=== PATIENT | female | born 1935 | race Caucasian/White ===

== ENCOUNTER 2019-12-17 09:31 | Emergency (ER) | payer MEDICARE, OTHER ==
[2019-12-17] MEDS ORDERED: Sodium Chloride 0.9% 10 ML Syringe FLUSH PRN (09:41)
[2019-12-17] MEDS ORDERED: Sodium Chloride 0.9% 1,000 ML IV ONE (09:42)
--- NOTE | 2019-12-17 10:21 | EDM.PDOC ---
ED HPI GENERAL MEDICAL PROBLEM - General Time Seen by Provider: 12/17/19 09:31 Source of Information: Reports: Patient History Limitations: Reports: No Limitations - History of Present Illness INITIAL COMMENTS - FREE TEXT/NARRATIVE: 911 was summoned for a female patient who had fallen at home. Pt. states that she was walking with her walker in her kitchen of her apartment when she fell, landing on her knees. Pt. is unsure how she fell. She doesn't think she tripped, but she didn't have any weakness or lightheadedness prior to the fall, either. Pt. denies any recent illness. She states that she remembers the whole event. Pt. 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 Pt. denies any chest pain, shortness of breath, cough, chest congestion, fever, chills, or dysuria. She states that she did not strike her head in the fall. Denies any neck pain. Her only complaint is that of bilateral knee pain (she states that she fell forward onto her walker, injuring her knees). Denies any facial trauma. No chest or abdominal trauma. Denies any hip or pelvic pain. Pt. denies any headache. No numbness/tingling in extremities/face. No problems with speech. She has been able to ambulate normally until this fall occurred. Denies any ill contacts. Her only real complaint, aside from the knee pain, is she feels a bit tired. Onset: Today Onset Date: 12/17/19 Location: Reports: Lower Extremity, Left, Lower Extremity, Right, Generalized Quality: Reports: Ache Severity: Mild Improves with: Reports: Rest Worsens with: Reports: Movement Associated Symptoms: Denies: Confusion, Chest Pain, Cough, cough w sputum, Diaphoresis, Fever/Chills, Loss of Appetite, Malaise, Nausea/Vomiting, Seizure, Shortness of Breath, Syncope, Weakness - Related Data Allergies Allergy/AdvReac Type Severity Reaction Status Date / Time metformin HCl Allergy Other Verified 12/17/19 11:11 [From Glucophage] Home Meds: Home Meds Acetaminophen/HYDROcodone [[place] 325-5 MG] 1 - 2 tab PO Q6H PRN 05/23/14 [History] Amlodipine Besylate/Valsartan [Amlodipine-Valsartan 5-160 mg] 1 each PO DAILY 05/23/14 [History] Aspirin [Ecotrin EC] 81 mg PO DAILY 05/23/14 [History] Calcium Carbonate/Vitamin D3 [Calcium 600 + Vit D Tablet] 1 each PO DAILY 05/23/14 [History] Furosemide [Lasix] 40 mg PO DAILY 05/23/14 [History] Gabapentin [Neurontin] 300 mg PO DAILY 05/23/14 [History] Glucagon,Human Recombinant [Glucagon Emergency Kit] 1 mg IJ ASDIRECTED 05/23/14 [History] Insulin Glarg,Human.Rec.Analog [Lantus] 44 unit SQ BID 05/23/14 [History] Insulin Lispro [HumaLOG] 18 unit SQ ACDIN 05/23/14 [History] Insulin Lispro [HumaLOG] 18 unit SQ ACLUN 05/23/14 [History] Insulin Lispro [Humalog] 10 unit SQ ACBRK 05/23/14 [History] Levothyroxine [Synthroid] 100 mcg PO DAILY 05/23/14 [History] Simvastatin [Zocor] 80 mg PO BEDTIME 05/23/14 [History] hydroCHLOROthiazide [Hydrochlorothiazide] 25 mg PO DAILY 05/23/14 [History] Albuterol/Ipratropium [DuoNeb 3.0-0.5 MG/3 ML] 3 ml NEB QID PRN #60 neb 05/28/14 [Rx] Valsartan [Diovan] 160 mg PO DAILY #30 tablet 05/28/14 [Rx] levoFLOXacin [Levaquin] 500 mg PO DAILY@0700 #5 tablet 05/28/14 [Rx] Social & Family History - Living Situation & Occupation Living situation: Reports: Occupation: Retired ED ROS GENERAL - Review of Systems Review Of Systems: See Below Constitutional: Reports: Malaise, Fatigue. Denies: Fever, Chills, Weakness, Diaphoresis, Decreased Appetite, Weight Loss HEENT: Reports: No Symptoms Respiratory: Reports: No Symptoms Cardiovascular: Reports: No Symptoms Endocrine: Reports: No Symptoms GI/Abdominal: Reports: No Symptoms : Reports: No Symptoms Musculoskeletal: Reports: Joint Pain (both knees) Skin: Reports: No Symptoms Neurological: Reports: No Symptoms Psychiatric: Reports: No Symptoms Hematologic/Lymphatic: Reports: No Symptoms Immunologic: Reports: No Symptoms ED EXAM, GENERAL - Physical Exam Exam: See Below Exam Limited By: No Limitations General Appearance: Alert, WD/WN, No Apparent Distress Eye Exam: Bilateral Eye: EOMI, Normal Fundi, Normal Inspection, PERRL Nose: Normal Inspection, No Blood Throat/Mouth: Normal Inspection, Normal Lips, Normal Teeth, Normal Gums, Normal Oropharynx, Normal Voice, No Airway Compromise Head: Atraumatic, Normocephalic Neck: Normal Inspection, Supple, Non-Tender, Full Range of Motion Respiratory/Chest: No Respiratory Distress, Lungs Clear, Normal Breath Sounds, No Accessory Muscle Use, Chest Non-Tender Cardiovascular: Normal Peripheral Pulses, Regular Rate, Rhythm, No Edema, No JVD, No Murmur Peripheral Pulses: 4+: Radial (R) GI/Abdominal: Soft, Non-Tender, No Organomegaly, No Distention, No Mass, Pelvis Stable (Female) Exam: Deferred Rectal (Female) Exam: Deferred Back Exam: Normal Inspection, Full Range of Motion Extremities: Normal Inspection, Normal Range of Motion, Non-Tender, No Pedal Edema, Normal Capillary Refill Neurological: Alert, Oriented, CN II-XII Intact, Normal Cognition, Normal Gait, Normal Reflexes, No Motor/Sensory Deficits Psychiatric: Normal Affect, Normal Mood Skin Exam: Warm, Dry, Intact, Normal Color, No Rash Lymphatic: No Adenopathy EKG INTERPRETATION Rhythm: NSR Mica: Normal P-Wave: Present QRS: Normal ST-T: Normal QT: Normal Course - Orders/Labs/Meds Orders: Active Orders 24 hr Category Date Time Status CULTURE URINE [RM] Stat Lab 12/17/19 11:37 Received Sodium Chloride 0.9% [Saline Flush] Med 12/17/19 09:41 Active 10 ml FLUSH ASDIRECTED PRN Peripheral IV Insertion Adult [OM.PC] Routine Oth 12/17/19 09:42 Ordered Medication Orders Sodium Chloride (Saline Flush) 10 ml FLUSH ASDIRECTED PRN PRN Reason: Keep Vein Open Labs: Laboratory Tests 12/17/19 12/17/19 12/17/19 Range/Units 09:57 09:57 09:57 WBC 9.1 (4.0-10.0) x10^3/uL RBC 3.78 L (4.00-5.50) x10^6/uL Hgb 11.7 L (12.0-16.0) g/dL Hct 35.4 (33.0-47.0) % MCV 93.7 H (78.0-93.0) fL MCH 31.0 (26.0-32.0) pg MCHC 33.1 (32.0-36.0) g/dL RDW Coeff of Stevie 12.8 (10.0-15.0) % Plt Count 272 (130-400) x10^3/uL Add Manual Diff Yes Neutrophils % (Manual) 55 (50-80) % Band Neutrophils % 2 (0-6) % Lymphocytes % (Manual) 34 (25-50) % Monocytes % (Manual) 7 (2-11) % Eosinophils % (Manual) 2 (0-4) % Platelet Estimate Adequate PT 10.2 (9.5-12.3) SEC INR 0.9 L (2.0-3.5) Sodium 140 (136-145) mmol/L Potassium 4.1 (3.5-5.1) mmol/L Chloride 102 (98-107) mmol/L Carbon Dioxide 28 (21-32) mmol/L Anion Gap 14.1 (10-20) mmol/L BUN 46 H (7-18) mg/dL Creatinine 1.5 H (0.55-1.02) mg/dL Est Cr Clr Drug Dosing TNP Estimated GFR (MDRD) 33 Glucose 153 H (74-106) mg/dL Calcium 8.9 (8.5-10.1) mg/dL Corrected Calcium 9.86 (8.5-10.1) mg/dL Magnesium 2.1 (1.8-2.4) mg/dL Total Bilirubin 0.4 (0.2-1.0) mg/dL AST 20 (15-37) U/L ALT 20 (14-59) U/L Alkaline Phosphatase 134 H (46-116) U/L Troponin I < 0.017 (<=0.056) ng/mL Total Protein 7.2 (6.4-8.2) g/dL Albumin 2.8 L (3.4-5.0) g/dL Globulin 4.4 Albumin/Globulin Ratio 0.64 TSH, Ultra Sensitive 16.766 H (0.358-3.74) uIU/mL Urine Color (YELLOW) Urine Appearance (CLEAR) Urine pH (5.0-8.0) Ur Specific [place] Urine Protein (NEGATIVE) mg/dL Urine Glucose (UA) (NEGATIVE) mg/dL Urine Ketones (NEGATIVE) mg/dL Urine Occult Blood (NEGATIVE) Urine Nitrite (NEGATIVE) Urine Bilirubin (NEGATIVE) Urine Urobilinogen (0.2) EU/dL Ur Leukocyte Esterase (NEGATIVE) Urine RBC (NOT SEEN) /HPF Urine WBC (NOT SEEN) /HPF Ur Squamous Epith Cells (NEGATIVE) /HPF Amorphous Sediment Urine Bacteria (NEGATIVE) /HPF Urine Mucus (NEGATIVE) /LPF 12/17/19 Range/Units 11:37 WBC (4.0-10.0) x10^3/uL RBC (4.00-5.50) x10^6/uL Hgb (12.0-16.0) g/dL Hct (33.0-47.0) % MCV (78.0-93.0) fL MCH (26.0-32.0) pg MCHC (32.0-36.0) g/dL RDW Coeff of Stevie (10.0-15.0) % Plt Count (130-400) x10^3/uL Add Manual Diff Neutrophils % (Manual) (50-80) % Band Neutrophils % (0-6) % Lymphocytes % (Manual) (25-50) % Monocytes % (Manual) (2-11) % Eosinophils % (Manual) (0-4) % Platelet Estimate PT (9.5-12.3) SEC INR (2.0-3.5) Sodium (136-145) mmol/L Potassium (3.5-5.1) mmol/L Chloride (98-107) mmol/L Carbon Dioxide (21-32) mmol/L Anion Gap (10-20) mmol/L BUN (7-18) mg/dL Creatinine (0.55-1.02) mg/dL Est Cr Clr Drug Dosing Estimated GFR (MDRD) Glucose (74-106) mg/dL Calcium (8.5-10.1) mg/dL Corrected Calcium (8.5-10.1) mg/dL Magnesium (1.8-2.4) mg/dL Total Bilirubin (0.2-1.0) mg/dL AST (15-37) U/L ALT (14-59) U/L Alkaline Phosphatase (46-116) U/L Troponin I (<=0.056) ng/mL Total Protein (6.4-8.2) g/dL Albumin (3.4-5.0) g/dL Globulin Albumin/Globulin Ratio TSH, Ultra Sensitive (0.358-3.74) uIU/mL Urine Color Yellow (YELLOW) Urine Appearance Turbid H (CLEAR) Urine pH 5.5 (5.0-8.0) Ur Specific [place] 1.020 Urine Protein 100 H (NEGATIVE) mg/dL Urine Glucose (UA) Negative (NEGATIVE) mg/dL Urine Ketones Negative (NEGATIVE) mg/dL Urine Occult Blood Trace-intact H (NEGATIVE) Urine Nitrite Negative (NEGATIVE) Urine Bilirubin Negative (NEGATIVE) Urine Urobilinogen 0.2 (0.2) EU/dL Ur Leukocyte Esterase Moderate H (NEGATIVE) Urine RBC 5-10 H (NOT SEEN) /HPF Urine WBC >100 H (NOT SEEN) /HPF Ur Squamous Epith Cells Many H (NEGATIVE) /HPF Amorphous Sediment Moderate Urine Bacteria Many H (NEGATIVE) /HPF Urine Mucus Moderate H (NEGATIVE) /LPF Meds: Medications Generic Name Dose Route Start Last Admin Trade Name Freq PRN Reason Stop Dose Admin Sodium Chloride 10 ml 12/17/19 09:41 Saline Flush FLUSH ASDIRECTED PRN Keep Vein Open Discontinued Medications Generic Name Dose Route Start Last Admin Trade Name Freq PRN Reason Stop Dose Admin Ceftriaxone Sodium 1 gm 12/17/19 12:28 Rocephin IVPUSH 12/17/19 12:29 STAT ONE Sodium Chloride 1,000 mls @ 1,000 mls/hr 12/17/19 09:42 12/17/19 10:01 Normal Saline IV 12/17/19 10:41 1,000 mls/hr .BOLUS ONE Administration Departure - Departure Time of Disposition: 12:41 (3) Disposition: Home, Self-Care 01 Clinical Impression: UTI (urinary tract infection), Knee sprain - Discharge Information Instructions: Knee Sprain, Adult, [id number], Urinary Tract Infection, Adult, Sulfamethoxazole; Trimethoprim, SMX-TMP tablets Referrals: Lizzy Andrade MD [Primary Care Provider] - Forms: ED Department Discharge Additional Instructions: Bactrim DS 1 twice daily for 7 days Drink plenty of fluids. Tylenol as needed for knee pain. Recheck in clinic in 10-14 days, sooner if not gradually improving. They should check your thyroid function, as one of your labs was off in ER. The rest of your labs were all within normal limits. - Problem List Review Problem List Initiated/Reviewed/Updated: Yes - My Orders Last 24 Hours: My Active Orders 12/17/19 09:41 Sodium Chloride 0.9% [Saline Flush] 10 ml FLUSH ASDIRECTED PRN 12/17/19 09:42 Peripheral IV Insertion Adult [OM.PC] Routine 12/17/19 11:37 CULTURE URINE [RM] Stat - Assessment/Plan Last 24 Hours: My Active Orders 12/17/19 09:41 Sodium Chloride 0.9% [Saline Flush] 10 ml FLUSH ASDIRECTED PRN 12/17/19 09:42 Peripheral IV Insertion Adult [OM.PC] Routine 12/17/19 11:37 CULTURE URINE [RM] Stat Plan: Bactrim DS 1 twice daily for 7 days Drink plenty of fluids. Tylenol as needed for knee pain. Recheck in clinic in 10-14 days, sooner if not gradually improving. They should check your thyroid function, as one of your labs was off in ER. The rest of your labs were all within normal limits.
[2019-12-17 10:38] LABS: CHLORIDE,CL 102 mmol/L (98-107); SODIUM,NA 140 mmol/L (136-145)
[2019-12-17 10:39] LABS: ANION GAP 14.1 mmol/L (10-20)
--- NOTE | 2019-12-17 11:13 | CR ---
[id number] RAD/RAD Knee Bilateral 3V EXAM: RAD Knee Bilateral 3V INDICATION: KNEE PAIN POST FALL. COMPARISON: None. FINDINGS: Moderate to advanced tricompartmental osteoarthritis bilaterally most significant in the medial compartments. Bilateral chondrocalcinosis. Osteopenia. No joint effusion, acute fracture, dislocation or other osseous abnormality is seen. IMPRESSION: 1. Moderate to advanced tricompartmental osteoarthritis. Bhavesh Grossman MD 12/17/19 1111 Thank you for allowing us to participate in the care of your patient.
[2019-12-17] MEDS ORDERED: cefTRIAXone 1 GM Vial IVPUSH ONE (12:28)
[2019-12-17 15:28] VITALS: BP 94/62; PULSE 62
== END 2019-12-17 12:56 | disposition home or self-care (01) ==
LOC: VM.ED 09:31
DX: S83.92XA Sprain of unspecified site of left knee, initial encounter (principal); S83.91XA Sprain of unspecified site of right knee, initial encounter; N39.0 Urinary tract infection, site not specified; Z88.8 Allergy status to other drugs, medicaments and biological substances; Z79.82 Long term (current) use of aspirin; Z79.899 Other long term (current) drug therapy; Z79.4 Long term (current) use of insulin; Y92.009 Unspecified place in unspecified non-institutional (private) residence as the place of occurrence of the external cause; W18.30XA Fall on same level, unspecified, initial encounter; Y92.030 Kitchen in apartment as the place of occurrence of the external cause
CPT/HCPCS: 36415; 73562-50; 80053; 81001; 83735; 84443; 84484; 85025; 85610; 87086; 87088; 87186; 93010; 99284; J0696; J7030

== ENCOUNTER 2020-01-04 09:45 | Emergency (ER) | payer MEDICARE, OTHER ==
--- NOTE | 2020-01-04 10:14 | EDM.PDOC ---
ED HPI GENERAL MEDICAL PROBLEM - General Stated Complaint: FELL Time Seen by Provider: 01/04/20 10:15 Source of Information: Reports: Patient History Limitations: Reports: No Limitations - History of Present Illness INITIAL COMMENTS - FREE TEXT/NARRATIVE: Patient comes emergency department today from home by ambulance with concerns of dizziness fall and left knee pain. This patient was just getting out of the shower when she was ambulating across the bathroom when she felt lightheaded and she fell to the ground landing on her left knee. She did not hit her head. She has no head neck or back pain. She has no loss of consciousness. She had no chest pain shortness of breath or difficulty breathing. No cough or congestion. No weakness fatigue or malaise. No fever no chills. No palpitations. She did not pass out completely. She did not hit her head. She has felt well over the past couple of days. She has had no abdominal pain nausea or vomiting. She does have some struggles with memory and states that her blood sugars have been relatively normal in the mid 100s over the past couple of days. She has been taking her medications as prescribed she believes. She does complain of left knee pain. No paresthesias the left lower extremity. She does have some chronic knee pain to bilateral knees. They are considering replacing her left knee. NO COVID exposure NO COVID symptoms. Left Knee Pain Score (Numeric/FACES): 0 - Related Data Allergies Allergy/AdvReac Type Severity Reaction Status Date / Time metformin HCl Allergy Other Verified 01/04/20 11:38 [From Glucophage] Home Meds: Home Meds Amlodipine Besylate/Valsartan [Amlodipine-Valsartan 5-160 mg] 5 mg PO DAILY 05/23/14 [History] Aspirin [Ecotrin EC] 81 mg PO DAILY 05/23/14 [History] Calcium Carbonate/Vitamin D3 [Calcium 600 + Vit D Tablet] 1 each PO DAILY 05/23/14 [History] Furosemide [Lasix] 60 mg PO DAILY 05/23/14 [History] Glucagon,Human Recombinant [Glucagon Emergency Kit] 1 mg IJ ASDIRECTED 05/23/14 [History] Insulin Lispro [HumaLOG] 18 unit SQ ACDIN 05/23/14 [History] Insulin Lispro [HumaLOG] 18 unit SQ ACLUN 05/23/14 [History] Insulin Lispro [Humalog] 10 unit SQ ACBRK 05/23/14 [History] Levothyroxine [Synthroid] 150 mcg PO DAILY 05/23/14 [History] Simvastatin [Zocor] 40 mg PO BEDTIME 05/23/14 [History] Cyanocobalamin (Vitamin B-12) [Vitamin B-12] 1,000 mcg PO DAILY 01/04/20 [History] Donepezil HCl [Aricept] 5 mg PO BEDTIME 01/04/20 [History] Fish Oil/DHA/EPA [Fish Oil 1,200 MG] 1 each PO BEDTIME 01/04/20 [History] Glucosamine/D3/Boswellia Karis [Osteo Bi-Flex Caplet] 1 each PO DAILY 01/04/20 [History] Insulin Degludec [Tresiba] 45 unit SQ DAILY 01/04/20 [History] Losartan [Cozaar] 100 mg PO DAILY 01/04/20 [History] Nitroglycerin 0.4 mg SL Q5M 01/04/20 [History] Non-Formulary Medication [NF Drug] 0.5 mg SUBCNJ WEEKLY 01/04/20 [History] polyethylene glycoL 3350 [MiraLAX] 17 gm PO DAILY 01/04/20 [History] Social & Family History - Living Situation & Occupation Living situation: Reports: Occupation: Retired ED ROS GENERAL - Review of Systems Review Of Systems: Comprehensive ROS is negative, except as noted in HPI. ED EXAM, DIZZINESS - Physical Exam Exam: See Below Exam Limited By: No Limitations General Appearance: Alert, WD/WN, No Apparent Distress, Obese Eye Exam: Bilateral Eye: EOMI, PERRL Ears: Normal External Exam, Normal Canal Nose: Normal Inspection, Normal Mucosa Throat/Mouth: Normal Inspection, Normal Lips, Normal Teeth, Normal Oropharynx, Normal Voice, No Airway Compromise Head Exam: Atraumatic, Normocephalic Neck: Normal Inspection, Supple, Non-Tender Respiratory/Chest: No Respiratory Distress, Lungs Clear, Normal Breath Sounds, No Accessory Muscle Use, Chest Non-Tender Cardiovascular: Normal Peripheral Pulses, Regular Rate, Rhythm GI/Abdominal: Normal Bowel Sounds, Soft, Non-Tender, Pelvis Stable (Female) Exam: Deferred Rectal (Female) Exam: Deferred Neurological: Alert, Normal Mood/Affect, Normal Dorsiflexion, CN II-XII Intact, Normal Plantar Flexion, Normal Gait, Normal Reflexes, No Motor/Sensory Deficits, Oriented x 3 Back Exam: Normal Inspection, Full Range of Motion. No: CVA Tenderness (L), CVA Tenderness (R), Paraspinal Tenderness, Vertebral Tenderness Extremities: Normal Range of Motion, Non-Tender, Normal Capillary Refill. No: Normal Inspection (Examination of the left lower extremity. There is no swelling or overt tenderness to the left knee. There is no bony deformity. She does have some crepitus on flexion and extension. She has some mild tenderness in varus and valgus stress. Negative Lockman's and anterior drawer sign. The rest the left lower extremity is unremarkable and atraumatic. The right lower extremity is unremarkable and atraumatic as well.) Psychiatric: Normal Affect, Normal Mood Skin Exam: Warm, Dry, Intact, Normal Color, No Rash EKG INTERPRETATION EKG Date: 01/04/20 Time: 09:50 Rhythm: NSR Rate (Beats/Min): 64 [place]: LAD-Left [place] Deviation P-Wave: Present QRS: Normal ST-T: Normal QT: Normal Course - Vital Signs Last Recorded V/S: Last Vital Signs Temp 97.8 F 01/04/20 12:37 Pulse 67 01/04/20 12:37 Resp 16 01/04/20 12:37 BP 142/65 H 01/04/20 12:37 Pulse Ox 96 01/04/20 12:37 - Orders/Labs/Meds Orders: Active Orders 24 hr Category Date Time Status CULTURE URINE [RM] Stat Lab 01/04/20 11:14 Received Labs: Laboratory Tests 01/04/20 01/04/20 01/04/20 Range/Units 10:09 10:09 11:14 WBC 8.3 (4.0-10.0) x10^3/uL RBC 3.74 L (4.00-5.50) x10^6/uL Hgb 11.7 L (12.0-16.0) g/dL Hct 35.2 (33.0-47.0) % MCV 94.1 H (78.0-93.0) fL MCH 31.3 (26.0-32.0) pg MCHC 33.2 (32.0-36.0) g/dL RDW Coeff of Stevie 12.4 (10.0-15.0) % Plt Count 259 (130-400) x10^3/uL Neut % (Auto) 59.9 (50.0-80.0) % Lymph % (Auto) 29.4 (25.0-50.0) % [place] % (Auto) 8.0 (2.0-11.0) % Eos % (Auto) 2.2 (0.0-4.0) % Baso % (Auto) 0.5 (0.2-1.2) % Sodium 135 L (136-145) mmol/L Potassium 4.8 (3.5-5.1) mmol/L Chloride 101 (98-107) mmol/L Carbon Dioxide 26 (21-32) mmol/L Anion Gap 12.8 (10-20) mmol/L BUN 46 H (7-18) mg/dL Creatinine 1.5 H (0.55-1.02) mg/dL Est Cr Clr Drug Dosing 23.92 mL/min Estimated GFR (MDRD) 33 Glucose 457 H* (74-106) mg/dL Calcium 9.1 (8.5-10.1) mg/dL Corrected Calcium 10.06 (8.5-10.1) mg/dL Total Bilirubin 0.4 (0.2-1.0) mg/dL AST 15 (15-37) U/L ALT 20 (14-59) U/L Alkaline Phosphatase 152 H (46-116) U/L Troponin I < 0.017 (<=0.056) ng/mL Total Protein 6.9 (6.4-8.2) g/dL Albumin 2.8 L (3.4-5.0) g/dL Globulin 4.1 Albumin/Globulin Ratio 0.68 Urine Color Yellow (YELLOW) Urine Appearance Clear (CLEAR) Urine pH 6.5 (5.0-8.0) Ur Specific [place] 1.020 Urine Protein 100 H (NEGATIVE) mg/dL Urine Glucose (UA) 500 H (NEGATIVE) mg/dL Urine Ketones Negative (NEGATIVE) mg/dL Urine Occult Blood Small H (NEGATIVE) Urine Nitrite Negative (NEGATIVE) Urine Bilirubin Negative (NEGATIVE) Urine Urobilinogen 0.2 (0.2) EU/dL Ur Leukocyte Esterase Small H (NEGATIVE) Urine RBC 0-5 (NOT SEEN) /HPF Urine WBC 5-10 H (NOT SEEN) /HPF Ur Squamous Epith Cells Many H (NEGATIVE) /HPF Amorphous Sediment Few Urine Bacteria Moderate H (NEGATIVE) /HPF Urine Mucus Few H (NEGATIVE) /LPF Urine Yeast (Budding) Few Meds: Medications Discontinued Medications Generic Name Dose Route Start Last Admin Trade Name Lois PRN Reason Stop Dose Admin Insulin Human Regular 8 unit 01/04/20 10:54 01/04/20 11:17 Humulin R SUBCUT 01/04/20 10:55 8 units NOW STA Administration Morphine Sulfate 2 mg 01/04/20 10:37 01/04/20 11:16 Morphine IVPUSH 01/04/20 10:38 2 mg ONETIME ONE Administration Ondansetron HCl 4 mg 01/04/20 10:37 01/04/20 11:16 Zofran IV 01/04/20 10:38 4 mg ONETIME ONE Administration - Re-Assessments/Exams Free Text/Narrative Re-Assessment/Exam: 01/04/20 The patient was given morphine and ondansetron. with much improvement of pain and comfort. Xray left knee no fracture of dislocation. CT head per radiology no plain CT evidence of acute intracranial process. The patient was able to ambulate with a walker quite steady and without any complaints. No dizziness. Her blood sugar is quite high 450s without any signs of DKA. With her cognitive or memory issues I wonder if she did not miss a dose of insulin at home. She was given 8units of regular INsulin SUbcut. She had lunch and her blood sugar maintained at 450. We will discharge home and have her check her blood sugars more frequently over the next couple of days. She only checks them once or twice a day. I would like her to follow-up with her primary care provider on Monday by phone with the follow-ups of her blood sugar. She should also consider discussing placement for assisted living or other assistive is at home as she has had increased falls and is struggling to continue living at home with her . She is comfortable with this plan and her granddaughter is here and we discussed this with her as well and they are comfortable with this plan and her questions are answered. Departure - Departure Time of Disposition: 12:21 Disposition: Home, Self-Care 01 Clinical Impression: Hyperglycemia, Lightheadedness Diabetes mellitus Qualifiers: Diabetes mellitus type: type 2 Diabetes mellitus senior living insulin use: with senior living use Diabetes mellitus complication status: without complication Qualified Code(s): E11.9 - Type 2 diabetes mellitus without complications Knee pain Qualifiers: Chronicity: unspecified Laterality: left Qualified Code(s): M25.562 - Pain in left knee - Discharge Information Instructions: How to Use Cold Therapy, Vath-up-Hfan, Hyperglycemia, Yacz-lj-Oleu, Dizziness, Kstr-ne-Omma Referrals: Lizzy Andrade MD [Primary Care Provider] - Forms: ED Department Discharge Additional Instructions: Check your blood sugars 4 times a day and record them. Adjust your blood sugars accordingly to your blood sugars. Make position changes slowly. Tylenol as needed for pain. Keep appointments with ortho as previous. Return to the ED if new or worsening symptoms. Follow up on phone with your PCP on monday with blood sugar numbers. Sepsis Event Note (ED) - Focused Exam Vital Signs: Vital Signs Temp Pulse Resp BP Pulse Ox 01/04/20 12:37 97.8 F 67 16 142/65 H 96 01/04/20 11:54 97.8 F 68 18 152/56 H 96 01/04/20 11:40 54 L 166/65 H 01/04/20 10:26 58 L 18 160/65 H 96 01/04/20 09:50 97.9 F 57 L 20 175/101 H 96 - My Orders Last 24 Hours: My Active Orders 01/04/20 11:14 CULTURE URINE [RM] Stat - Assessment/Plan Last 24 Hours: My Active Orders 01/04/20 11:14 CULTURE URINE [RM] Stat
[2020-01-04 10:41] LABS: CHLORIDE,CL 101 mmol/L (98-107); SODIUM,NA 135 mmol/L (136-145)
[2020-01-04 10:48] LABS: ANION GAP 12.8 mmol/L (10-20)
[2020-01-04] MEDS: Ondansetron 4 MG/2 ML SDV IV ONE (11:16)
[2020-01-04] MEDS: Morphine 2 MG/ML SYRINGE IVPUSH ONE (11:16)
[2020-01-04] MEDS: Insulin Regular, Human 100 Units/ML 3 ML Vial SUBCUT STA (11:17)
--- NOTE | 2020-01-04 11:44 | CT ---
[id number] CT/CT Head WO IV EXAM: CT Head WO IV CLINICAL DATA: DIZZINESS COMPARISON: CORRELATION IS MADE WITH SEPTEMBER 05, 2019 FINDINGS: There is no mass or mass effect. There is no hemorrhage or hydrocephalus. There are no extra-axial fluid collections. There are no sites of abnormal attenuation. IMPRESSION: NO PLAIN CT EVIDENCE OF ACUTE INTRACRANIAL PROCESS. Ozzy Quinonez MD 01/04/20 [id number] Thank you for allowing us to participate in the care of your patient.
--- NOTE | 2020-01-04 11:49 | CR ---
[id number] RAD/RAD Knee Left 1-2V EXAM: RAD Knee Left 1-2V CLINICAL DATA: TRAUMA COMPARISON: NO PREVIOUS SIMILAR EXAM IS AVAILABLE FINDINGS: No fracture or dislocation is seen There are significant degenerative changes. IMPRESSION: NO FRACTURE OR DISLOCATION Ozzy Quinonez MD 01/04/20 [id number] Thank you for allowing us to participate in the care of your patient.
[2020-01-04 13:32] VITALS: BP 142/65; PULSE 67
== END 2020-01-04 13:03 | disposition home or self-care (01) ==
LOC: VM.ED 09:45
DX: E11.65 Type 2 diabetes mellitus with hyperglycemia (principal); M25.562 Pain in left knee; Z88.8 Allergy status to other drugs, medicaments and biological substances; Z79.82 Long term (current) use of aspirin; Z79.4 Long term (current) use of insulin; Z79.899 Other long term (current) drug therapy; W19.XXXA Unspecified fall, initial encounter
CPT/HCPCS: 36415; 70450; 73560-LT; 80053; 81001; 82962; 84484; 85025; 87086; 87088; 93005; 93010; 96374; 96375; 99284; 99285-25; J1815-GY; J2270; J2405

== ENCOUNTER 2020-01-06 09:19 | Emergency (ER) | payer MEDICARE, OTHER ==
[2020-01-06] MEDS: Insulin Regular, Human 100 Units/ML 3 ML Vial SUBCUT SCH (10:13)
--- NOTE | 2020-01-06 10:31 | EDM.PDOC ---
ED HPI GENERAL MEDICAL PROBLEM - General Chief Complaint: General Stated Complaint: Weakness Time Seen by Provider: 01/06/20 09:37 Source of Information: Reports: Patient, RN, RN Notes Reviewed History Limitations: Reports: Physical Impairment, Other (Forgetful) - History of Present Illness INITIAL COMMENTS - FREE TEXT/NARRATIVE: Patient presents to ER with her with complaint of falls at home. Patient's not present in the room when visiting with the patient. Patient states she has been more weak and has been falling at home. When asked if she fell today, patient states she is unsure if she fell today or yesterday. She states she has become forgetful. Patient states she is diabetic, and states she does not always remember to take her meds the correct way. Patient states she needs both knees replaced, and states she feels her legs get weak when she stands and she falls. Patient denies any dizziness prior to falling. Patient states she does not know why we do not admit her to the hospital when she comes into the ER. Patient was seen in the ER on Monday, labs drawn, head CT completed. Patient was discharged to home. Patient denies any pain or problems at this time. Patient presents to the ER in a wheelchair, underwear, sweatshirt, bathrobe. Onset: Gradual - Related Data Allergies Allergy/AdvReac Type Severity Reaction Status Date / Time metformin HCl Allergy Other Verified 01/06/20 09:33 [From Glucophage] Home Meds: Home Meds Amlodipine Besylate/Valsartan [Amlodipine-Valsartan 5-160 mg] 5 mg PO DAILY 05/23/14 [History] Aspirin [Ecotrin EC] 81 mg PO DAILY 05/23/14 [History] Calcium Carbonate/Vitamin D3 [Calcium 600 + Vit D Tablet] 1 each PO DAILY 05/23/14 [History] Furosemide [Lasix] 60 mg PO DAILY 05/23/14 [History] Glucagon,Human Recombinant [Glucagon Emergency Kit] 1 mg IJ ASDIRECTED 05/23/14 [History] Insulin Lispro [HumaLOG] 18 unit SQ ACDIN 05/23/14 [History] Insulin Lispro [HumaLOG] 18 unit SQ ACLUN 05/23/14 [History] Insulin Lispro [Humalog] 10 unit SQ ACBRK 05/23/14 [History] Levothyroxine [Synthroid] 150 mcg PO DAILY 05/23/14 [History] Simvastatin [Zocor] 40 mg PO BEDTIME 05/23/14 [History] Cyanocobalamin (Vitamin B-12) [Vitamin B-12] 1,000 mcg PO DAILY 01/04/20 [History] Donepezil HCl [Aricept] 5 mg PO BEDTIME 01/04/20 [History] Fish Oil/DHA/EPA [Fish Oil 1,200 MG] 1 each PO BEDTIME 01/04/20 [History] Glucosamine/D3/Boswellia Karis [Osteo Bi-Flex Caplet] 1 each PO DAILY 01/04/20 [History] Insulin Degludec [Tresiba] 45 unit SQ DAILY 01/04/20 [History] Losartan [Cozaar] 100 mg PO DAILY 01/04/20 [History] Nitroglycerin 0.4 mg SL Q5M 01/04/20 [History] Non-Formulary Medication [NF Drug] 0.5 mg SUBCNJ WEEKLY 01/04/20 [History] polyethylene glycoL 3350 [MiraLAX] 17 gm PO DAILY 01/04/20 [History] Past Medical History HEENT History: Reports: Hard of Hearing Cardiovascular History: Reports: CAD, Heart Failure, Hypertension, Other (See Below) Other Cardiovascular History: bilateral carotid artery stenosis, symptomatic bradycardia Respiratory History: Reports: Sleep Apnea, Other (See Below) Other Respiratory History: chronic allergic rhinitis Genitourinary History: Reports: Other (See Below) Other Genitourinary History: chronic kidney disease stage III Neurological History: Reports: Neuropathy, Diabetic Other Neuro History: cognitive dysfunction Endocrine/Metabolic History: Reports: Diabetes, Type II, Hypothyroidism, Ob esity/BMI 30+, Other (See Below) Other Endocrine/Metabolic History: vitamin B 12 deficiency Dermatologic History: Reports: Other (See Below) Other Dermatologic History: rosacea, onychomycosis Social & Family History - Family History Family Medical History: Noncontributory - Caffeine Use Caffeine Use: Reports: None - Living Situation & Occupation Living situation: Reports: Occupation: Retired ED ROS GENERAL - Review of Systems Review Of Systems: Comprehensive ROS is negative, except as noted in HPI. ED EXAM, GENERAL - Physical Exam Exam: See Below Exam Limited By: Other (Weak, unsteady, forgetful) General Appearance: Alert, WD/WN, No Apparent Distress Eye Exam: Bilateral Eye: EOMI, Normal Inspection Ears: Normal External Exam, Hearing Grossly Normal Nose: Normal Inspection Throat/Mouth: Normal Inspection, Normal Voice, No Airway Compromise Head: Atraumatic, Normocephalic Neck: Normal Inspection, Supple, Non-Tender Respiratory/Chest: No Respiratory Distress, Lungs Clear, Normal Breath Sounds, No Accessory Muscle Use, Chest Non-Tender Cardiovascular: Normal Peripheral Pulses, Regular Rate, Rhythm, No Gallop, No JVD, No Murmur, No Rub Peripheral Pulses: 2+: Radial (L), Radial (R) GI/Abdominal: Normal Bowel Sounds, Soft, Non-Tender (Female) Exam: Deferred Rectal (Female) Exam: Deferred Back Exam: Normal Inspection, Decreased Range of Motion Extremities: Pedal Edema (+1 pedal/lower extremity edema), Leg Pain (bilateral knee pain), Limited Range of Motion (weakness) Neurological: Alert, Oriented, Memory Loss Recent Events, Abnormal Gait Psychiatric: Normal Affect, Normal Mood Skin Exam: Warm, Dry, Intact, Normal Color, No Rash Lymphatic: No Adenopathy Course - Vital Signs Last Recorded V/S: Last Vital Signs Temp 97.1 F 01/06/20 09:39 Pulse 63 01/06/20 09:39 Resp 14 01/06/20 09:39 BP 204/70 H 01/06/20 09:39 Pulse Ox 97 01/06/20 09:39 - Orders/Labs/Meds Orders: Active Orders 24 hr Category Date Time Status Blood Glucose Check, Bedside [RC] ONETIME Care 01/06/20 09:48 Active Insulin Regular, Human [HumuLIN R] Med 01/06/20 12:00 Active 5 unit SUBCUT TIDMEALS Medication Orders Insulin Human Regular (Humulin R) 5 unit SUBCUT TIDMEALS [facility] Last Admin: 01/06/20 10:13 Dose: 5 units Documented by: FADI Labs: Laboratory Tests 01/06/20 01/06/20 01/06/20 Range/Units 09:56 10:09 10:25 WBC 8.3 (4.0-10.0) x10^3/uL RBC 3.65 L (4.00-5.50) x10^6/uL Hgb 11.4 L (12.0-16.0) g/dL Hct 34.5 (33.0-47.0) % MCV 94.5 H (78.0-93.0) fL MCH 31.2 (26.0-32.0) pg MCHC 33.0 (32.0-36.0) g/dL RDW Coeff of Stevie 12.5 (10.0-15.0) % Plt Count 254 (130-400) x10^3/uL Neut % (Auto) 57.6 (50.0-80.0) % Lymph % (Auto) 31.4 (25.0-50.0) % Woodruff % (Auto) 8.2 (2.0-11.0) % Eos % (Auto) 2.4 (0.0-4.0) % Baso % (Auto) 0.4 (0.2-1.2) % Sodium (136-145) mmol/L Potassium (3.5-5.1) mmol/L Chloride (98-107) mmol/L Carbon Dioxide (21-32) mmol/L Anion Gap (10-20) mmol/L BUN (7-18) mg/dL Creatinine (0.55-1.02) mg/dL Est Cr Clr Drug Dosing mL/min Estimated GFR (MDRD) Glucose (74-106) mg/dL POC Glucose 412 H* (74-106) mg/dL Calcium (8.5-10.1) mg/dL Urine Color Yellow (YELLOW) Urine Appearance Slightly cloudy H (CLEAR) Urine pH 6.0 (5.0-8.0) Ur Specific [place] 1.020 Urine Protein 100 H (NEGATIVE) mg/dL Urine Glucose (UA) 500 H (NEGATIVE) mg/dL Urine Ketones Negative (NEGATIVE) mg/dL Urine Occult Blood Trace-lysed H (NEGATIVE) Urine Nitrite Negative (NEGATIVE) Urine Bilirubin Negative (NEGATIVE) Urine Urobilinogen 0.2 (0.2) EU/dL Ur Leukocyte Esterase Negative (NEGATIVE) Urine RBC 0-5 (NOT SEEN) /HPF Urine WBC 5-10 H (NOT SEEN) /HPF Ur Squamous Epith Cells Moderate H (NEGATIVE) /HPF Amorphous Sediment Rare Urine Bacteria Few H (NEGATIVE) /HPF Urine Mucus Rare H (NEGATIVE) /LPF 01/06/20 01/06/20 Range/Units 10:25 10:49 WBC (4.0-10.0) x10^3/uL RBC (4.00-5.50) x10^6/uL Hgb (12.0-16.0) g/dL Hct (33.0-47.0) % MCV (78.0-93.0) fL MCH (26.0-32.0) pg MCHC (32.0-36.0) g/dL RDW Coeff of Stevie (10.0-15.0) % Plt Count (130-400) x10^3/uL Neut % (Auto) (50.0-80.0) % Lymph % (Auto) (25.0-50.0) % Woodruff % (Auto) (2.0-11.0) % Eos % (Auto) (0.0-4.0) % Baso % (Auto) (0.2-1.2) % Sodium 136 (136-145) mmol/L Potassium 4.9 (3.5-5.1) mmol/L Chloride 101 (98-107) mmol/L Carbon Dioxide 27 (21-32) mmol/L Anion Gap 12.9 (10-20) mmol/L BUN 41 H (7-18) mg/dL Creatinine 1.4 H (0.55-1.02) mg/dL Est Cr Clr Drug Dosing 25.63 mL/min Estimated GFR (MDRD) 36 Glucose 395 H (74-106) mg/dL POC Glucose 395 H (74-106) mg/dL Calcium 9.1 (8.5-10.1) mg/dL Urine Color (YELLOW) Urine Appearance (CLEAR) Urine pH (5.0-8.0) Ur Specific [place] Urine Protein (NEGATIVE) mg/dL Urine Glucose (UA) (NEGATIVE) mg/dL Urine Ketones (NEGATIVE) mg/dL Urine Occult Blood (NEGATIVE) Urine Nitrite (NEGATIVE) Urine Bilirubin (NEGATIVE) Urine Urobilinogen (0.2) EU/dL Ur Leukocyte Esterase (NEGATIVE) Urine RBC (NOT SEEN) /HPF Urine WBC (NOT SEEN) /HPF Ur Squamous Epith Cells (NEGATIVE) /HPF Amorphous Sediment Urine Bacteria (NEGATIVE) /HPF Urine Mucus (NEGATIVE) /LPF Meds: Medications Generic Name Dose Route Start Last Admin Trade Name Freq PRN Reason Stop Dose Admin Insulin Human Regular 5 unit 01/06/20 12:00 01/06/20 10:13 Humulin R SUBCUT 5 units TIDMEALS CINDY Administration - Re-Assessments/Exams Free Text/Narrative Re-Assessment/Exam: 01/06/20 10:[address] completed on Monday when patient was in to ER. 01/06/20 10:45 Noemy, psychiatric social worker supervisor, called to get involved. Noemy did talk to and patient about services that would be available to help them. 01/06/20 10:56 Appointment was made with DR. Andrade for patient to go to the clinic and see her right now. Noemy discussed with the patient and , as well as Dr. Andrade's nurse the possibility of Home Health referral. Departure - Departure Time of Disposition: 10:53 Disposition: Home, Self-Care 01 Condition: Fair Clinical Impression: Weakness, Forgetfulness Fall at home Qualifiers: Encounter type: initial encounter Qualified Code(s): W19.XXXA - Unspecified fall, initial encounter - Discharge Information *PRESCRIPTION DRUG MONITORING PROGRAM REVIEWED*: No *COPY OF PRESCRIPTION DRUG MONITORING REPORT IN PATIENT ELIAS: No Instructions: Weakness, [id number] Referrals: Lizzy Andrade MD [Primary Care Provider] - Forms: ED Department Discharge Additional Instructions: Follow up with Dr. Andrade today for Home Health referral Sepsis Event Note (ED) - Evaluation Sepsis Screening Result: No Definite Risk - Focused Exam Vital Signs: Vital Signs Temp Pulse Resp BP Pulse Ox 01/06/20 09:39 97.1 F 63 14 204/70 H 97 - My Orders Last 24 Hours: My Active Orders 01/06/20 09:48 Blood Glucose Check, Bedside [RC] ONETIME 01/06/20 12:00 Insulin Regular, Human [HumuLIN R] 5 unit SUBCUT TIDMEALS - Assessment/Plan Last 24 Hours: My Active Orders 01/06/20 09:48 Blood Glucose Check, Bedside [RC] ONETIME 01/06/20 12:00 Insulin Regular, Human [HumuLIN R] 5 unit SUBCUT TIDMEALS
[2020-01-06 10:46] LABS: ANION GAP 12.9 mmol/L (10-20)
[2020-01-06 11:40] VITALS: BP 189/72; PULSE 64
== END 2020-01-06 11:00 | disposition home or self-care (01) ==
LOC: SUPCPDRO 09:19 → VM.ED 09:19
DX: M25.561 Pain in right knee (principal); M25.562 Pain in left knee; R53.1 Weakness; R41.3 Other amnesia; I25.10 Atherosclerotic heart disease of native coronary artery without angina pectoris; I13.0 Hypertensive heart and chronic kidney disease with heart failure and stage 1 through stage 4 chronic kidney disease, or unspecified chronic kidney disease; E11.22 Type 2 diabetes mellitus with diabetic chronic kidney disease; I50.9 Heart failure, unspecified; N18.30 Chronic kidney disease, stage 3 unspecified; E11.40 Type 2 diabetes mellitus with diabetic neuropathy, unspecified; E03.9 Hypothyroidism, unspecified; E66.9 Obesity, unspecified; Z88.8 Allergy status to other drugs, medicaments and biological substances; Z79.4 Long term (current) use of insulin; Z79.82 Long term (current) use of aspirin; Z79.899 Other long term (current) drug therapy; W19.XXXA Unspecified fall, initial encounter; Y92.009 Unspecified place in unspecified non-institutional (private) residence as the place of occurrence of the external cause
CPT/HCPCS: 36415; 80048; 81001; 82962; 85025; 99284; J1815-GY

== ENCOUNTER 2020-11-05 15:26 | Emergency (ER) | payer MEDICARE, OTHER, MEDICAID ==
[2020-11-05 16:03] VITALS: PULSE 48
[2020-11-05 16:23] LABS: CHLORIDE,CL 106 mmol/L (98-107); SODIUM,NA 142 mmol/L (136-145)
--- NOTE | 2020-11-05 16:23 | CR ---
[id number] RAD/RAD Chest PA And Lateral EXAM: RAD Chest PA And Lateral INDICATION: LIGHTHEADEDNESS. COMPARISON: None. DISCUSSION/IMPRESSION: Heart is normal in size. Bilateral symmetric lung hyperinflation. Findings are nonspecific but commonly seen as sequela of parenchymal emphysema in the setting of chronic obstructive pulmonary disease. Negative for pneumonia. No pleural effusion or pneumothorax. No pulmonary edema. Tyron Ziegler MD 11/05/20 [id number] Thank you for allowing us to participate in the care of your patient.
[2020-11-05 16:24] LABS: ANION GAP 10.7 mmol/L (5-15)
[2020-11-05] MEDS ORDERED: Sodium Chloride 0.45% 1,000 ML IV SCH (16:45)
--- NOTE | 2020-11-05 16:46 | EDM.PDOC ---
ED HPI GENERAL MEDICAL PROBLEM - General Chief Complaint: General Stated Complaint: lightheadedness Time Seen by Provider: 11/05/20 15:26 Source of Information: Reports: Patient, EMS, [facility] Records History Limitations: Reports: No Limitations - History of Present Illness INITIAL COMMENTS - FREE TEXT/NARRATIVE: Moni is an 85 year old female who presents to ER with complaints of intermittent lightheadedness. [facility] the [facility] report that her pulse was in the 50s. At present, patient denies any concerns. No chest pain, shortness of breath, dizziness. No nausea/vomiting or abdominal pain. No urinary symptoms. Was able to ambulate to the ambulance without concerns. She admits that at times when she gets up, feels lightheaded. No concerns at rest. No edema. Pulse noted in the 50s per EMS. Blood pressure stable at 158/57. Oxygen at 95%. PMH significant for DM type 2, insulin dependent; HTN, CAD, Paroxysmal vertigo, OA, CHF, Hyperlipidemia, UTE, Bradycardia Onset: Today, Gradual Duration: Hour(s):, Waxing/Waning Location: Reports: Generalized Improves with: Reports: Rest Associated Symptoms: Denies: Confusion, Chest Pain, Cough, Fever/Chills, Headaches, Nausea/Vomiting, Shortness of Breath, Syncope, Weakness - Related Data Allergies Allergy/AdvReac Type Severity Reaction Status Date / Time metformin HCl Allergy Other Verified 11/05/20 16:05 [From Glucophage] Home Meds: Home Meds Amlodipine Besylate/Valsartan [Amlodipine-Valsartan 5-160 mg] 5 mg PO DAILY 05/23/14 [History] Aspirin [Ecotrin EC] 81 mg PO DAILY 05/23/14 [History] Calcium Carbonate/Vitamin D3 [Calcium 600 + Vit D Tablet] 1 each PO DAILY 05/23/14 [History] Furosemide [Lasix] 60 mg PO DAILY 05/23/14 [History] Glucagon,Human Recombinant [Glucagon Emergency Kit] 1 mg IJ ASDIRECTED 05/23/14 [History] Insulin Lispro [HumaLOG] 18 unit SQ ACDIN 05/23/14 [History] Insulin Lispro [HumaLOG] 18 unit SQ ACLUN 05/23/14 [History] Insulin Lispro [Humalog] 10 unit SQ ACBRK 05/23/14 [History] Levothyroxine [Synthroid] 150 mcg PO DAILY 05/23/14 [History] Simvastatin [Zocor] 40 mg PO BEDTIME 05/23/14 [History] Cyanocobalamin (Vitamin B-12) [Vitamin B-12] 1,000 mcg PO DAILY 01/04/20 [History] Donepezil HCl [Aricept] 5 mg PO BEDTIME 01/04/20 [History] Fish Oil/DHA/EPA [Fish Oil 1,200 MG] 1 each PO BEDTIME 01/04/20 [History] Glucosamine/D3/Boswellia Karis [Osteo Bi-Flex Caplet] 1 each PO DAILY 01/04/20 [History] Insulin Degludec [Tresiba] 45 unit SQ DAILY 01/04/20 [History] Losartan [Cozaar] 100 mg PO DAILY 01/04/20 [History] Nitroglycerin 0.4 mg SL Q5M 01/04/20 [History] Non-Formulary Medication [NF Drug] 0.5 mg SUBCNJ WEEKLY 01/04/20 [History] polyethylene glycoL 3350 [MiraLAX] 17 gm PO DAILY 01/04/20 [History] Past Medical History HEENT History: Reports: Hard of Hearing Cardiovascular History: Reports: CAD, Heart Failure, Hypertension, Other (See Below) Other Cardiovascular History: bilateral carotid artery stenosis, symptomatic bradycardia Respiratory History: Reports: Sleep Apnea, Other (See Below) Other Respiratory History: chronic allergic rhinitis Genitourinary History: Reports: Other (See Below) Other Genitourinary History: chronic kidney disease stage III Neurological History: Reports: Neuropathy, Diabetic Other Neuro History: cognitive dysfunction Endocrine/Metabolic History: Reports: Diabetes, Type II, Hypothyroidism, Obesity/BMI 30+, Other (See Below) Other Endocrine/Metabolic History: vitamin B 12 deficiency Dermatologic History: Reports: Other (See Below) Other Dermatologic History: rosacea, onychomycosis Social & Family History - Family History Family Medical History: No Pertinent Family History - Tobacco Use Tobacco Use Status *Q: Unknown Ever Used Tobacco - Caffeine Use Caffeine Use: Reports: None - Living Situation & Occupation Living situation: Reports: Occupation: Retired ED ROS GENERAL - Review of Systems Review Of Systems: See Below Constitutional: Denies: Fever, Chills, Malaise, Weakness, Fatigue HEENT: Denies: Ear Pain, Rhinitis, Sinus Problem, Throat Pain, Vertigo Respiratory: Denies: Shortness of Breath, Cough Cardiovascular: Reports: Lightheadedness. Denies: Chest Pain, Edema Endocrine: Denies: Fatigue GI/Abdominal: Denies: Abdominal Pain, Constipation, Diarrhea, Nausea, Vomiting : Reports: No Symptoms Musculoskeletal: Reports: No Symptoms Skin: Reports: No Symptoms Neurological: Reports: No Symptoms ED EXAM, GENERAL - Physical Exam Exam: See Below Exam Limited By: No Limitations General Appearance: Alert, WD/WN, No Apparent Distress Eye Exam: Bilateral Eye: PERRL Ears: Normal External Exam, Normal TMs Nose: Normal Inspection, Normal Mucosa, No Blood Throat/Mouth: Normal Inspection, Normal Oropharynx Head: Normocephalic Neck: Normal Inspection, Supple, Non-Tender Respiratory/Chest: No Respiratory Distress, Lungs Clear, Normal Breath Sounds Cardiovascular: Bradycardia GI/Abdominal: Normal Bowel Sounds, Soft, Non-Tender #1 Interpretation Rhythm: Other (sinus bradycardia) Musella: Normal P-Wave: Enlarged QRS: LBBB ST-T: Normal QT: Normal Comparison: Change From Previous EKG (no rhythm change, now noted PVCs) Course - Vital Signs Last Recorded V/S: Last Vital Signs Temp 97.7 F 11/05/20 15:28 Pulse 48 L 11/05/20 15:28 Resp 18 11/05/20 15:28 BP 148/56 H 11/05/20 15:28 Pulse Ox 96 11/05/20 15:28 - Orders/Labs/Meds Orders: Active Orders 24 hr Category Date Time Status EKG 12 Lead [EKG Documentation Completion] [RC] STAT Care 11/05/20 15:47 Active UA RFX JUVENAL AND CULT IF INDIC [URIN] Stat Lab 11/05/20 15:47 Ordered Sodium Chloride 0.45% @ 150 MLS/HR(1,000ml) Med 11/05/20 16:45 Ordered Sodium Chloride 0.45% 1,000 ml IV ASDIRECTED Medication Orders Sodium Chloride (Sodium Chloride 0.45%) 1,000 mls @ 150 mls/hr IV ASDIRECTED CINDY Labs: Laboratory Tests 11/05/20 11/05/20 Range/Units 15:57 15:57 WBC 13.7 H (4.0-10.0) x10^3/uL RBC 3.72 L (4.00-5.50) x10^6/uL Hgb 11.9 L (12.0-16.0) g/dL Hct 35.6 (33.0-47.0) % MCV 95.7 H (78.0-93.0) fL MCH 32.0 (26.0-32.0) pg MCHC 33.4 (32.0-36.0) g/dL RDW Coeff of Stevie 13.8 (10.0-15.0) % Plt Count 299 (130-400) x10^3/uL Add Manual Diff Yes Neutrophils % (Manual) 59 (50-80) % Band Neutrophils % 1 (0-6) % Lymphocytes % (Manual) 29 (25-50) % Monocytes % (Manual) 9 (2-11) % Eosinophils % (Manual) 2 (0-4) % Nucleated RBCs 2 (0-5) /100WBC Platelet Estimate Adequate Sodium 142 (136-145) mmol/L Potassium 4.7 (3.5-5.1) mmol/L Chloride 106 (98-107) mmol/L Carbon Dioxide 30 (21-32) mmol/L Anion Gap 10.7 (5-15) mmol/L BUN 65 H (7-18) mg/dL Creatinine 1.8 H (0.55-1.02) mg/dL Est Cr Clr Drug Dosing TNP Estimated GFR (MDRD) 27 Glucose 133 H (70-99) mg/dL Calcium 9.0 (8.5-10.1) mg/dL Corrected Calcium 9.9 (8.5-10.1) mg/dL Total Bilirubin 0.3 (0.2-1.0) mg/dL AST 19 (15-37) U/L ALT 22 (14-59) U/L Alkaline Phosphatase 159 H (46-116) U/L Lactate Dehydrogenase 208 (81-234) U/L Creatine Kinase 25 L (26-192) U/L Troponin I High Sens 10 (<=51) ng/L C-Reactive Protein < 0.2 (<=0.9) mg/dL Total Protein 7.4 (6.4-8.2) g/dL Albumin 2.9 L (3.4-5.0) g/dL Globulin 4.5 Albumin/Globulin Ratio 0.64 Meds: Medications Generic Name Dose Route Start Last Admin Trade Name Lois PRN Reason Stop Dose Admin Sodium Chloride 1,000 mls @ 150 mls/hr 11/05/20 16:45 Sodium Chloride 0.45% IV ASDIRECTED CINDY - Re-Assessments/Exams Free Text/Narrative Re-Assessment/Exam: 11/05/20 17:09 WBC 13.4, CRP negative. UA negative. BUN of 65, normal around 40. Creatinine 1.8, normal 1.4. IV fluids with 1/2 NS started. EKG shows sinus rhythm, rate 52-60 with PVCs. No change in base rhythm per comparison with exception of PVCs. Does have history of bradycardia. Chest xray shows hyperinflation, suggestive of COPD. Negative for pneumonia or edema. 11/05/20 17:29 11/05/20 18:47 Patient assisted to commode. Does have brief lightheadedness when rising from chair/bed but does pass quickly. IV infiltrated. Received approximately 300 ml of fluid. [facility] to [facility] May need holter monitor or cardiology consult for bradycardia. Follow up with PCP Departure - Departure Time of Disposition: 18:50 Disposition: Home, Self-Care 01 Condition: Fair Clinical Impression: Bradycardia, Lightheadedness - Discharge Information *PRESCRIPTION DRUG MONITORING PROGRAM REVIEWED*: No *COPY OF PRESCRIPTION DRUG MONITORING REPORT IN PATIENT ELIAS: No Instructions: Bradycardia, Adult Referrals: Lizzy Andrade MD [Primary Care Provider] - Additional Instructions: 1. Rest 2. Push fluids 3. Slow cautious movements as has positional lightheadedness 4. May need to consider follow up with cardiology for bradycardia if remains symptomatic 5. Consult with Dr. Andrade for further instruction Sepsis Event Note (ED) - Focused Exam Vital Signs: Vital Signs Temp Pulse Resp BP Pulse Ox 11/05/20 15:28 97.7 F 48 L 18 148/56 H 96 - My Orders Last 24 Hours: My Active Orders 11/05/20 15:47 EKG 12 Lead [EKG Documentation Completion] [RC] STAT UA RFX JUVENAL AND CULT IF INDIC [URIN] Stat 11/05/20 16:45 Sodium Chloride 0.45% @ 150 MLS/HR(1,000ml) Sodium Chloride 0.45% 1,000 ml IV ASDIRECTED - Assessment/Plan Last 24 Hours: My Active Orders 11/05/20 15:47 EKG 12 Lead [EKG Documentation Completion] [RC] STAT UA RFX JUVENAL AND CULT IF INDIC [URIN] Stat 11/05/20 16:45 Sodium Chloride 0.45% @ 150 MLS/HR(1,000ml) Sodium Chloride 0.45% 1,000 ml IV ASDIRECTED
[2020-11-05 19:03] VITALS: BP 133/69
== END 2020-11-05 19:18 | disposition home or self-care (01) ==
LOC: VM.ED 15:26
DX: R00.1 Bradycardia, unspecified (principal); R42 Dizziness and giddiness; I44.7 Left bundle-branch block, unspecified; I25.10 Atherosclerotic heart disease of native coronary artery without angina pectoris; I13.0 Hypertensive heart and chronic kidney disease with heart failure and stage 1 through stage 4 chronic kidney disease, or unspecified chronic kidney disease; E11.22 Type 2 diabetes mellitus with diabetic chronic kidney disease; N18.30 Chronic kidney disease, stage 3 unspecified; I50.9 Heart failure, unspecified; E11.40 Type 2 diabetes mellitus with diabetic neuropathy, unspecified; E03.9 Hypothyroidism, unspecified; E78.5 Hyperlipidemia, unspecified; M06.9 Rheumatoid arthritis, unspecified; E66.9 Obesity, unspecified; Z88.8 Allergy status to other drugs, medicaments and biological substances; Z79.82 Long term (current) use of aspirin; Z79.4 Long term (current) use of insulin; Z79.899 Other long term (current) drug therapy
CPT/HCPCS: 36415; 71046; 80053; 81001; 82550; 83615; 84484; 85025; 86140; 87086; 93005; 93010; 99284; 99284-25

== ENCOUNTER 2023-05-18 17:57 | Inpatient (IN) | payer MEDICARE, MEDICAID ==
[2023-05-18] MEDS ORDERED: Sodium Chloride 0.9% 10 ML Syringe FLUSH PRN (18:02)
[2023-05-18 18:18] LABS: BASOPHILS PERCENT AUTO 0.2 % (0.2-1.2); EOSINOPHILS ABSOLUTE AUTO 0.1 x10^3/uL (0.0-0.5); EOSINOPHILS PERCENT AUTO 0.5 % (0.0-4.0); HEMATOCRIT 34.3 % (33.0-47.0); HEMOGLOBIN 11.7 g/dL (12.0-16.0); IMMATURE GRAN ABSOLUTE AUTO 0.05 x10^3/uL (0.00-0.07); LYMPHOCYTES ABSOLUTE AUTO 2.4 x10^3/uL (1.0-4.8); LYMPHOCYTES PERCENT AUTO 19.8 % (25.0-50.0); MEAN CORPUSCULAR HEMOGLOBIN 32.3 pg (26.0-32.0); MEAN CORPUSCULAR HGB CONC 34.1 g/dL (32.0-36.0); MEAN CORPUSCULAR VOLUME 94.8 fL (78.0-93.0); MONOCYTES ABSOLUTE AUTO 0.7 x10^3/uL (0.0-0.8); MONOCYTES PERCENT AUTO 5.9 % (2.0-11.0); NEUTROPHILS ABSOLUTE AUTO 8.7 x10^3/uL (1.8-7.7); NEUTROPHILS PERCENT AUTO 73.2 % (50.0-80.0); PLATELET COUNT,PLT 364 x10^3/uL (130-400); RED BLOOD CELL COUNT 3.62 x10^6/uL (4.00-5.50); WHITE BLOOD CELL COUNT,WBC 11.9 x10^3/uL (4.0-10.0)
[2023-05-18] MEDS: Ondansetron 4 MG/2 ML SDV IVPUSH ONE (18:18)
[2023-05-18] MEDS: Lactated Ringers 1,000 ML IV ONE (18:18)
[2023-05-18] MEDS ORDERED: Menthol/Zinc Oxide Ointment 3.5 GM Tube TOP SCH (18:30)
[2023-05-18 18:42] LABS: A/G RATIO 0.52; ALANINE AMINOTRANSFERASE,ALT 82 U/L (14-59); ALBUMIN 2.5 g/dL (3.4-5.0); ASPARTATE AMNIOTRANSFERASE,AST 48 U/L (15-37); BILIRUBIN TOTAL 0.5 mg/dL (0.2-1.0); C-REACTIVE PROTEIN 5.83 mg/dL (<=0.50); CALCIUM 8.3 mg/dL (8.5-10.1); CARBON DIOXIDE,CO2 19 mmol/L (21-32); CHLORIDE,CL 94 mmol/L (98-107); GLUCOSE RANDOM 196 mg/dL (70-99); MAGNESIUM 2.2 mg/dL (1.8-2.4); POTASSIUM,K 4.6 mmol/L (3.5-5.1); PROTEIN TOTAL,TP 7.3 g/dL (6.4-8.2); SODIUM,NA 133 mmol/L (136-145)
[2023-05-18 18:43] LABS: ANION GAP 24.6 mmol/L (5-15)
[2023-05-18 18:44] LABS: ALKALINE PHOSPHATASE 1024 U/L (46-116); ESTIMATED GFR 6 mL/min (>=60)
[2023-05-18 18:45] LABS: BLOOD UREA NITROGEN,BUN 161 mg/dL (7-18); CREATININE 6.4 mg/dL (0.55-1.02)
[2023-05-18 18:53] LABS: APPEARANCE,URINE TURBID (CLEAR); BILIRUBIN,URINE MODERATE (NEGATIVE); COLOR,URINE DARK YELLOW (YELLOW); GLUCOSE,URINE NEGATIVE (NEGATIVE); KETONES,URINE TRACE mg/dL (NEGATIVE); LEUKOCYTE ESTERASE,URINE LARGE (NEGATIVE); NITRITE,URINE NEGATIVE (NEGATIVE); OCCULT BLOOD,URINE MODERATE (NEGATIVE); PH,URINE 5.5 (5.0-8.0); PROTEIN,URINE 100 mg/dL (NEGATIVE); UROBILINOGEN,URINE 0.2 EU/dL (0.2)
[2023-05-18 18:56] LABS: CORONAVIRUS COVID-19 NAA NEGATIVE (NEGATIVE); INFLUENZA A NAA NEGATIVE (NEGATIVE); INFLUENZA B NAA NEGATIVE (NEGATIVE); RESPIRATORY SYNCYTIAL VIR NAA NEGATIVE (NEGATIVE)
[2023-05-18 19:01] LABS: BACTERIA,URINE MANY /HPF (NOT SEEN); SQUAMOUS EPITHELIAL CELLS,UR OCCASIONAL /HPF (NOT SEEN); WBC,URINE PACKED /HPF (NOT SEEN)
[2023-05-18] MEDS: cefTRIAXone 1 GM Vial IVPUSH ONE (19:08)
[2023-05-18 19:09] LABS: LACTIC ACID 1.3 mmol/L (0.4-2.0)
[2023-05-18] MEDS ORDERED: 50% Dextrose in Water 50 ML Syringe IVPUSH PRN (21:30)
[2023-05-18] MEDS ORDERED: Glucagon,Human Recombinant 1 MG Vial IM PRN (21:30)
[2023-05-18] MEDS: Menthol/Zinc Oxide Ointment 3.5 GM Tube TOP SCH (23:23)
[2023-05-18] MEDS: Donepezil 5 MG Tab PO SCH (23:49)
[2023-05-19] MEDS: Lactated Ringers 1,000 ML IV ONE (00:45)
[2023-05-19] MEDS: Sodium Chloride 0.9% 1,000 ML IV SCH (03:30)
[2023-05-19] MEDS: Levothyroxine 112 MCG Tab PO SCH (06:15)
[2023-05-19] MEDS: Ondansetron 4 MG/2 ML SDV IV PRN (06:49)
[2023-05-19 07:16] LABS: BASOPHILS PERCENT AUTO 0.2 % (0.2-1.2); EOSINOPHILS ABSOLUTE AUTO 0.1 x10^3/uL (0.0-0.5); EOSINOPHILS PERCENT AUTO 1.1 % (0.0-4.0); HEMATOCRIT 29.1 % (33.0-47.0); HEMOGLOBIN 9.9 g/dL (12.0-16.0); IMMATURE GRAN ABSOLUTE AUTO 0.05 x10^3/uL (0.00-0.07); LYMPHOCYTES ABSOLUTE AUTO 3.5 x10^3/uL (1.0-4.8); LYMPHOCYTES PERCENT AUTO 28.1 % (25.0-50.0); MEAN CORPUSCULAR HEMOGLOBIN 32.2 pg (26.0-32.0); MEAN CORPUSCULAR VOLUME 94.8 fL (78.0-93.0); MONOCYTES ABSOLUTE AUTO 0.9 x10^3/uL (0.0-0.8); MONOCYTES PERCENT AUTO 7.6 % (2.0-11.0); NEUTROPHILS ABSOLUTE AUTO 7.7 x10^3/uL (1.8-7.7); NEUTROPHILS PERCENT AUTO 62.6 % (50.0-80.0); PLATELET COUNT,PLT 332 x10^3/uL (130-400); RED BLOOD CELL COUNT 3.07 x10^6/uL (4.00-5.50); WHITE BLOOD CELL COUNT,WBC 12.3 x10^3/uL (4.0-10.0)
[2023-05-19 07:39] LABS: A/G RATIO 0.53; ALBUMIN 2.3 g/dL (3.4-5.0); ANION GAP 23.2 mmol/L (5-15); BILIRUBIN TOTAL 0.3 mg/dL (0.2-1.0); CALCIUM 7.7 mg/dL (8.5-10.1); EST CRCL DRUG DOSING (CG) 5.09 mL/min; POTASSIUM,K 4.2 mmol/L (3.5-5.1); PROTEIN TOTAL,TP 6.6 g/dL (6.4-8.2)
[2023-05-19 07:40] LABS: CREATININE 5.8 mg/dL (0.55-1.02)
[2023-05-19] MEDS ORDERED: Levothyroxine 100 MCG Tab PO SCH (09:00)
[2023-05-19] MEDS ORDERED: Losartan 50 MG Tab PO SCH (09:00)
[2023-05-19] MEDS: atorvaSTATin 40 MG Tab PO SCH (10:13)
[2023-05-19] MEDS: Multivitamin Tab PO SCH (10:15)
[2023-05-19] MEDS: Acetaminophen 325 MG Tab PO SCH (10:15)
[2023-05-19] MEDS: Cyanocobalamin (Vitamin B12) 1,000 MCG Tab PO SCH (10:15)
[2023-05-19] MEDS: Diclofenac Sodium 1% Gel 100 GM Tube TOP SCH (10:17)
[2023-05-19] MEDS: Insulin Glarg,Human.Rec.Analog 100 Unit/ML 10 ML Vial SUBCUT SCH (10:18)
[2023-05-19] MEDS: Aspirin 81 MG Tab.EC PO SCH (10:18)
[2023-05-19] MEDS: Insulin Lispro 100 Units/ML 3 ML Vial SUBCUT SCH (12:02)
[2023-05-19] MEDS: FLU (Fluad Quad) 2023-24(65UP)/MF59C/PF 60 MCG/0.5 ML Syringe IM ONE (18:19)
[2023-05-19] MEDS ORDERED: Donepezil 5 MG Tab PO SCH (21:00)
[2023-05-19] MEDS: cefTRIAXone 1 GM Vial IVPUSH SCH (21:04)
[2023-05-20] MEDS: Levothyroxine 112 MCG Tab PO SCH (06:19)
[2023-05-20 08:22] LABS: BASOPHILS PERCENT AUTO 0.3 % (0.2-1.2); EOSINOPHILS ABSOLUTE AUTO 0.3 x10^3/uL (0.0-0.5); EOSINOPHILS PERCENT AUTO 2.7 % (0.0-4.0); HEMATOCRIT 31.7 % (33.0-47.0); HEMOGLOBIN 10.3 g/dL (12.0-16.0); LYMPHOCYTES ABSOLUTE AUTO 2.4 x10^3/uL (1.0-4.8); LYMPHOCYTES PERCENT AUTO 24.6 % (25.0-50.0); MEAN CORPUSCULAR HEMOGLOBIN 31.9 pg (26.0-32.0); MEAN CORPUSCULAR HGB CONC 32.5 g/dL (32.0-36.0); MEAN CORPUSCULAR VOLUME 98.1 fL (78.0-93.0); MONOCYTES ABSOLUTE AUTO 0.6 x10^3/uL (0.0-0.8); MONOCYTES PERCENT AUTO 6.5 % (2.0-11.0); NEUTROPHILS ABSOLUTE AUTO 6.4 x10^3/uL (1.8-7.7); NEUTROPHILS PERCENT AUTO 64.9 % (50.0-80.0); PLATELET COUNT,PLT 293 x10^3/uL (130-400); RED BLOOD CELL COUNT 3.23 x10^6/uL (4.00-5.50); WHITE BLOOD CELL COUNT,WBC 9.9 x10^3/uL (4.0-10.0)
[2023-05-20 08:52] LABS: A/G RATIO 0.55; ALANINE AMINOTRANSFERASE,ALT 64 U/L (14-59); ALBUMIN 2.3 g/dL (3.4-5.0); ALKALINE PHOSPHATASE 801 U/L (46-116); ASPARTATE AMNIOTRANSFERASE,AST 46 U/L (15-37); BILIRUBIN TOTAL 0.2 mg/dL (0.2-1.0); CALCIUM 7.1 mg/dL (8.5-10.1); CARBON DIOXIDE,CO2 18 mmol/L (21-32); CHLORIDE,CL 105 mmol/L (98-107); EST CRCL DRUG DOSING (CG) 6.71 mL/min; GLUCOSE RANDOM 100 mg/dL (70-99); MAGNESIUM 1.9 mg/dL (1.8-2.4); POTASSIUM,K 3.7 mmol/L (3.5-5.1); PROTEIN TOTAL,TP 6.5 g/dL (6.4-8.2); SODIUM,NA 142 mmol/L (136-145)
[2023-05-20 09:01] LABS: ANION GAP 22.7 mmol/L (5-15); ESTIMATED GFR 9 mL/min (>=60)
[2023-05-20 09:04] LABS: BLOOD UREA NITROGEN,BUN 128 mg/dL (7-18)
[2023-05-20 09:06] LABS: CREATININE 4.4 mg/dL (0.55-1.02)
[2023-05-20 09:36] LABS: PRO B-TYPE NATRIUR PEPT,BNPPRO > 35000 pg/mL (<=450)
[2023-05-20] MEDS: Insulin Glarg,Human.Rec.Analog 100 Unit/ML 10 ML Vial SUBCUT SCH (10:03)
[2023-05-21 07:53] LABS: BASOPHILS PERCENT AUTO 0.2 % (0.2-1.2); EOSINOPHILS PERCENT AUTO 0.3 % (0.0-4.0); HEMOGLOBIN 10.4 g/dL (12.0-16.0); IMMATURE GRAN ABSOLUTE AUTO 0.17 x10^3/uL (0.00-0.07); LYMPHOCYTES ABSOLUTE AUTO 1.3 x10^3/uL (1.0-4.8); LYMPHOCYTES PERCENT AUTO 12.3 % (25.0-50.0); MEAN CORPUSCULAR HEMOGLOBIN 32.1 pg (26.0-32.0); MEAN CORPUSCULAR HGB CONC 32.5 g/dL (32.0-36.0); MEAN CORPUSCULAR VOLUME 98.8 fL (78.0-93.0); MONOCYTES ABSOLUTE AUTO 0.6 x10^3/uL (0.0-0.8); MONOCYTES PERCENT AUTO 5.4 % (2.0-11.0); NEUTROPHILS ABSOLUTE AUTO 8.1 x10^3/uL (1.8-7.7); NEUTROPHILS PERCENT AUTO 80.1 % (50.0-80.0); PLATELET COUNT,PLT 294 x10^3/uL (130-400); RED BLOOD CELL COUNT 3.24 x10^6/uL (4.00-5.50); WHITE BLOOD CELL COUNT,WBC 10.2 x10^3/uL (4.0-10.0)
[2023-05-21 08:14] LABS: A/G RATIO 0.55; ALBUMIN 2.3 g/dL (3.4-5.0); BILIRUBIN TOTAL 0.3 mg/dL (0.2-1.0); EST CRCL DRUG DOSING (CG) 8.44 mL/min; POTASSIUM,K 3.9 mmol/L (3.5-5.1); PROTEIN TOTAL,TP 6.5 g/dL (6.4-8.2)
[2023-05-21 08:16] LABS: ANION GAP 23.9 mmol/L (5-15)
[2023-05-21 08:22] LABS: CALCIUM 6.9 mg/dL (8.5-10.1); CREATININE 3.5 mg/dL (0.55-1.02)
[2023-05-21] MEDS ORDERED: Ondansetron 4 MG Tab.DIS PO PRN (11:36)
[2023-05-22 06:36] VITALS: BP 132/75; PULSE 80
[2023-05-22 07:13] LABS: A/G RATIO 0.59; ALBUMIN 2.4 g/dL (3.4-5.0); ANION GAP 26.8 mmol/L (5-15); BILIRUBIN TOTAL 0.3 mg/dL (0.2-1.0); CALCIUM 7.2 mg/dL (8.5-10.1); CREATININE 3.2 mg/dL (0.55-1.02); EST CRCL DRUG DOSING (CG) 9.23 mL/min; POTASSIUM,K 3.8 mmol/L (3.5-5.1); PROTEIN TOTAL,TP 6.5 g/dL (6.4-8.2)
== END 2023-05-22 11:00 | DRG 683 ==
LOC: VM.ED 17:57 → VM.MS 19:05
PROVIDERS: ADMIT Nurse Practitioner Family; ATTEND Family Medicine
DX: N17.9 Acute kidney failure, unspecified (principal); I13.0 Hypertensive heart and chronic kidney disease with heart failure and stage 1 through stage 4 chronic kidney disease, or unspecified chronic kidney disease; I50.32 Chronic diastolic (congestive) heart failure; N18.9 Chronic kidney disease, unspecified; N39.0 Urinary tract infection, site not specified; N30.00 Acute cystitis without hematuria; I50.9 Heart failure, unspecified; E86.0 Dehydration; N18.32 Chronic kidney disease, stage 3b; R19.7 Diarrhea, unspecified; Z66 Do not resuscitate; Z51.5 Encounter for palliative care; H91.90 Unspecified hearing loss, unspecified ear; I25.10 Atherosclerotic heart disease of native coronary artery without angina pectoris; G47.30 Sleep apnea, unspecified; E03.9 Hypothyroidism, unspecified; E11.22 Type 2 diabetes mellitus with diabetic chronic kidney disease; E66.9 Obesity, unspecified; G30.1 Alzheimer's disease with late onset; F02.80 Dementia in other diseases classified elsewhere, unspecified severity, without behavioral disturbance, psychotic disturbance, mood disturbance, and anxiety; E78.00 Pure hypercholesterolemia, unspecified; M25.511 Pain in right shoulder; M25.512 Pain in left shoulder; M25.561 Pain in right knee; M25.562 Pain in left knee; G89.29 Other chronic pain; E11.42 Type 2 diabetes mellitus with diabetic polyneuropathy; R79.89 Other specified abnormal findings of blood chemistry; M17.0 Bilateral primary osteoarthritis of knee; B96.20 Unspecified Escherichia coli [E. coli] as the cause of diseases classified elsewhere; E53.8 Deficiency of other specified B group vitamins; Z88.8 Allergy status to other drugs, medicaments and biological substances; Z79.82 Long term (current) use of aspirin; Z79.899 Other long term (current) drug therapy; Z79.4 Long term (current) use of insulin; Z68.34 Body mass index [BMI] 34.0-34.9, adult; Z11.52 Encounter for screening for COVID-19
CPT/HCPCS: 0241U; 36415; 80053; 81001; 82947; 83605; 83735; 83880; 85025; 86140; 87040; 87070; 87086; 87088; 87186; 96361; 96374; 99284; 99285-25; A9270-GY; J0696; J1815-GY; J2405; J7030; J7120